=== PATIENT | female | born 1985 | race Caucasian/White ===

== ENCOUNTER 2016-07-14 17:45 | Emergency (ER) | payer BC ==
[~2016-07-14] VITALS: Ht 160 cm; Wt 65.6 kg
[2016-07-14 17:51] VITALS: TEMP 36.8; Ht 160 cm; Wt 65.6 kg
--- NOTE | 2016-07-14 18:30 | DIAGNOSTIC IMAGING REPORT ---
LEFT WRIST MIN 3 VIEWS ROUTINE CLINICAL HISTORY: Left wrist pain status post trauma COMPARISON: None. DISCUSSION: No fractures or dislocations are visualized. IMPRESSION: No fractures or dislocations identified. Electronically signed by: Boby Ugalde M.D. 07/14/2016 6:28 PM Dictated Date/Time: 07/14/2016 6:27 PM
[2016-07-14] MEDS ORDERED: KETO10TA PO (18:39)
[2016-07-14 18:51] VITALS: BP 124/74; PULSE 77; O2SAT 99
--- NOTE | 2016-07-15 20:44 | EMERGENCY ROOM VISIT NOTE ---
ED Visit Note First contact with patient: 17:55 Chief Complaint: Left wrist pain. History of Present Illness: Ms. Saenz is a 30-year-old female who ambulates into the ED complaining of posterior left wrist pain. Patient reports 2 days ago she fell while getting out of the shower and struck her left hand and wrist on a door. She reports immediately after the injury she was having mild discomfort but over the last 2 days she has noted some increasing swelling and bruising and had an increase in pain. Currently she describes her pain as a sharp and throbbing sensation primarily over the distal ulna but there is some over the distal radius also. She rates her discomfort 7/10. Her pain is nonradiating. Her pain worsens with palpation of the distal radius and ulna and flexion and extension of the wrist. She has not identified any alleviating factors related to the pain. She does report she has been using [id number] medications without relief of her discomfort. Associated with her pain she reports she is also noted some bruising over the posterior hand with some mild tenderness and mild paresthesias of the index, middle, ring and little fingers. She denies elbow pain, forearm pain, forearm, wrist, hand and finger weakness. She denies any previous significant injuries or surgeries to the left wrist or hand. Review of Systems: As noted above in history of present illness. Past Medical History: Patient denies. Current Medications: Patient denies. Allergies to Medications: Tramadol, penicillin. Social History: Patient is currently employed; she feels safe in her home environment; she denies tobacco use. Physical Examination: Vital Signs: Date Time Temp Pulse Resp B/P Pulse Ox O2 Delivery O2 Flow Rate FiO2 07/14/16 18:51 77 16 124/74 99 Room Air 07/14/16 17:51 36.8 97 18 137/93 98 Room Air GENERAL: 30-year-old female in mild to moderate distress due to pain, nontoxic- appearing, afebrile and hemodynamically stable. NEUROLOGICAL: Awake, alert and oriented to person, place and time. Answering questions appropriately and following commands. SKIN: Warm, dry and pink. Left Hand and Wrist: No open soft tissue injuries but contusions posterior aspect of the wrist and hand. No soft tissue eruptions or trauma noted. LEFT UPPER EXTREMITY: No gross bony deformity. No tenderness in the elbow or forearm. Moderate tenderness over the distal ulna and minimal tenderness over the distal radius. Mild tenderness over the posterior hand predominantly over the metacarpals. I don't appreciate any bony deformity, bony crepitus. She does have full range of motion in flexion, extension and radial and ulnar deviation rest but this produces pain. She does have full range of motion in flexion and extension of the MCP and PIP joints. Throughout the hand the skin was warm and pink and capillary refill was brisk. She is able to distinguish light sensations through all dermatomes ED Course: Patient is assessed as noted above. Patient was given ice and 10 mg of Toradol by mouth for pain. Right Wrist X-Ray: Was read by myself and the radiologist showing no acute fractures or dislocations. Patient was placed in a wrist lacer splint. Patient was educated about her condition and instructed on her treatment plan; she verbalizes understanding and agreement with this plan. Clinical Impression: Posterior wrist contusion. Left posterior hand contusion. Disposition: Patient discharged home in stable condition; prior to departure she was reassessed and subjectively reported she was feeling much better and rated her discomfort 4/10. Plan: Comfort measures were discussed with the patient including alternating doses of Toradol and acetaminophen every 3 hours, ice, wrist splint and rest. Patient was encouraged to follow-up with orthopedics if no better in 7-10 days. Patient was encouraged return the ED for worsening/uncontrolled pain, uncontrolled swelling, worsening or numbness/tingling of the fingers or any new/ concerning symptoms.
== END 2016-07-14 18:52 | disposition home or self-care (01) ==
LOC: C.EDB 17:46 → C.EDD 18:52
DX: S60.222A Contusion of left hand, initial encounter (principal); S60.212A Contusion of left wrist, initial encounter; W22.8XXA Striking against or struck by other objects, initial encounter